=== PATIENT | male | born 1995 | race Caucasian/White ===

== ENCOUNTER 2019-06-26 07:34 | Emergency (ER) | payer OTHER ==
[~2019-06-26] VITALS: Ht 167.6 cm; Wt 76.2 kg
[2019-06-26 08:17] LABS: ABSOLUTE NEUTROPHILS 4.4 thou/uL (1.4-8.2); BASOPHILS 0.4 % (0.0-2.0); EOSINOPHILS 1.2 % (0.0-3.0); HEMATOCRIT 44.3 % (42.0-52.0); MCH 29.6 pg (26.0-34.0); MCHC 33.8 g/dL (28.0-37.0); MCV 87.7 fL (80.0-100.0); MONOCYTES 7.6 % (1.0-8.0); PLATELET COUNT 293 thou/uL (150-400); POLYS 42.8 % (36.0-66.0); RBC 5.05 mil/uL (4.50-6.00); RDW 12.6 % (10.5-14.5); WBC 10.3 thou/uL (4.0-11.0)
[2019-06-26 08:20] LABS: CALCIUM 9.1 mg/dL (8.5-10.1); POTASSIUM 4.1 mmol/L (3.5-5.1)
[2019-06-26 08:26] LABS: TOTAL BILIRUBIN 0.4 mg/dL (<0.1-1.0); TOTAL PROTEIN 7.4 g/dL (6.4-8.2)
[2019-06-26] MEDS ORDERED: TORADOL 10 MG T10 MG PO (09:47)
[2019-06-26] MEDS ORDERED: FLOMAX0.4 MG PO (09:47)
[2019-06-26] MEDS ORDERED: ZOFRAN ODT4 MG DISSOLVE (09:47)
[2019-06-26 10:28] VITALS: BP 135/77
== END 2019-06-26 10:37 | disposition home or self-care (01) ==
LOC: ER 07:34
PROVIDERS: Emergency Medicine
DX: N20.0 Calculus of kidney (principal)